=== PATIENT | male | born 1965 | race Caucasian/White ===

== ENCOUNTER → 2019-12-02 | Outpatient (CLI) | payer MEDICARE, MEDICAID ==
--- NOTE | 2019-12-02 16:02 | Diagnostic Imaging Report ---
INDICATION: Constipation, abdominal pain. Supine and upright abdominal images 3:35 PM There are bilateral pleural effusions. The gallbladder appears to be surgically absent. Bowel gas pattern is normal. There are no pathologic masses or calcifications. There does not appear to be excessive fecal retention. IMPRESSION: No acute abnormalities in the abdomen. There are bilateral pleural effusions present. Dictated by: Dictated on workstation # [id number]
== END ==
LOC: RAD FS 15:10
PROVIDERS: ATTEND Nurse Practitioner Family
DX: J90 Pleural effusion, not elsewhere classified (principal); R10.84 Generalized abdominal pain
CPT/HCPCS: 74019

== ENCOUNTER → 2019-12-03 | Outpatient (CLI) | payer MEDICARE, MEDICAID ==
--- NOTE | 2019-12-03 16:32 | Diagnostic Imaging Report ---
INDICATION: Pleural effusion. TIME OF EXAM: 3:09 PM. COMPARISON: No prior studies are available for comparison. FINDINGS: There is a small right and gjpyv-hr-sadpjtts left pleural effusion. There are congestive changes in both lungs. The central vascularity is prominent. There appears to be airspace infiltrate and consolidation in the left base obscuring the left hemidiaphragm. No pneumothorax is seen. IMPRESSION: Central congestive changes with bilateral pleural effusions, left greater, as well as left basilar airspace infiltrate, suggestive of pneumonia. Dictated by: Dictated on workstation # [id number]
== END ==
LOC: RAD FS 14:56
PROVIDERS: ATTEND Nurse Practitioner Family
DX: J90 Pleural effusion, not elsewhere classified (principal)
CPT/HCPCS: 71046

== ENCOUNTER 2019-12-09 12:19 | Emergency (ER) | payer MEDICARE, MEDICAID ==
[~2019-12-09] VITALS: Ht 175.3 cm; Wt 79.4 kg
--- NOTE | 2019-12-09 13:04 | ED Cough/URI ---
General Chief Complaint: Respiratory Problems Stated Complaint: SOB Nursing Triage Note: Pt came by private vehicle with chief complaint of SOB. Pt was seen by Kailyn Best APRN and was put on an antibiotic, because his xray looked like bilateral pneumonia. Pt was alert, oriented x 4 and ambulatory. Pt stated he hasn't had much sleep, because he can't catch his breath. Pt stated he needed to sit on side of bed to breath. Pt stated that this started about 5-6 days ago. Pt denies fever, chills, but has had a cough. Sepsis Screen: Possible Severe Sepsis Risk Source: patient Exam Limitations: no limitations History of Present Illness Date Seen by Provider: Dec 09, 2019 Time Seen by Provider: 12:20 Initial Comments The patient is a pleasant 54-year-old male presents for evaluation of shortness of breath. He states that he was seen at a walk-in clinic by Kailyn Best and had a chest x-ray which showed a questionable bilateral pneumonia as a he was placed on an antibiotic. He does not recall which antibiotic. He states that he is not noticing any improvement since starting on the antibiotics and is having difficulty catching his breath as well as a cough. He states that he was started on hemodialysis about a month ago for chronic kidney disease which have been progressing. He has no history of DVT or PE. He denies fevers or chills, loss of taste or smell, productive cough, hemoptysis, abdominal pain, chest pain, palpitations, dizziness or syncope. He is alert and oriented 4, calm, speaking in full sentences, and appears to be in no distress. Upon arrival his oxygen level was approximately 86% on room air which quickly improved to 100% on nasal cannula oxygen. Timing/Duration: other (for several days) Severity/Quality: dry cough Modifying Factors: Improves With Activity (makes it worse) Associated Symptoms: cough, dizziness, fever/chills, muscle aches, nasal congestion, nasal drainage, shortness of breath, sinus infection, sore throat, wheezing Allergies and Home Medications Allergies Coded Allergies: Penicillins (Verified Allergy, Unknown, hives, 12/09/19) Patient Home Medication List Home Medication List Reviewed: Yes Review of Systems Review of Systems Constitutional: no symptoms reported EENTM: no symptoms reported Respiratory: cough, short of breath Cardiovascular: no symptoms reported Gastrointestinal: no symptoms reported Genitourinary: no symptoms reported Musculoskeletal: no symptoms reported Skin: no symptoms reported Psychiatric/Neurological: No Symptoms Reported Hematologic/Lymphatic: No Symptoms Reported Immunological/Allergic: no symptoms reported All Other Systems Reviewed Negative Unless Noted: Yes Past Gimjqbb-Uotmyf-Ppomib Hx Past Med/Social Hx: Reviewed Nursing Past Med/Soc Hx Patient Social History Recent Foreign Travel: No Contact w/Someone Who Travel: No Recent Infectious Disease Expo: No Physical Exam Vital Signs - First Documented 12/09/19 12/09/19 12:35 12:54 Temp 36.5 Pulse 112 Resp 22 B/P (MAP) 165/96 (119) Pulse Ox 100 O2 Delivery Nasal Cannula O2 Flow Rate 3.00 Capillary Refill : Less Than 3 Seconds Height: '" Weight: lbs. oz. 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 tested, no motor/sensory deficits, alert, normal mood/affect, oriented x 3 Skin: normal color, warm/dry Progress/Results/Core Measures Suspected Sepsis Recent Fever Within 48 Hours: No Infection Criteria Present: Suspected New Infection New/Unexplained Altered Menta: No Sepsis Screen: Possible Severe Sepsis Risk SIRS Temperature: Pulse: 112 Respiratory Rate: 22 Laboratory Tests 12/09/19 12:45: White Blood Count 6.8 Blood Pressure 165 /96 Mean: 119 Laboratory Tests 12/09/19 12:45: Creatinine 7.35H, Platelet Count 150, Total Bilirubin 0.5 Results/Orders Lab Results Laboratory Tests Test 12/09/19 12:45 12/09/19 12:50 Range/Units White Blood Count 6.8 4.3-11.0 10^3/uL Red Blood Count 3.18 L 4.35-5.85 10^6/uL Hemoglobin 8.9 L 13.3-17.7 G/DL Hematocrit 27 L 40-54 % Mean Corpuscular Volume 85 80-99 FL Mean Corpuscular Hemoglobin 28 25-34 PG Mean Corpuscular Hemoglobin Concent 33 32-36 G/DL Red Cell Distribution Width 15.1 H 10.0-14.5 % Platelet Count 150 130-400 10^3/uL Mean Platelet Volume 11.6 H 7.4-10.4 FL Neutrophils (%) (Auto) 85 H 42-75 % Lymphocytes (%) (Auto) 7 L 12-44 % Monocytes (%) (Auto) 6 0-12 % Eosinophils (%) (Auto) 2 0-10 % Basophils (%) (Auto) 0 0-10 % Neutrophils # (Auto) 5.7 1.8-7.8 X 10^3 Lymphocytes # (Auto) 0.5 L 1.0-4.0 X 10^3 Monocytes # (Auto) 0.4 0.0-1.0 X 10^3 Eosinophils # (Auto) 0.1 0.0-0.3 10^3/uL Basophils # (Auto) 0.0 0.0-0.1 10^3/uL Neutrophils % (Manual) 84 % Lymphocytes % (Manual) 6 % Monocytes % (Manual) 7 % Eosinophils % (Manual) 3 % Basophils % (Manual) 0 % Band Neutrophils 0 % Sodium Level 135 135-145 MMOL/L Potassium Level 4.1 3.6-5.0 MMOL/L Chloride Level 100 98-107 MMOL/L Carbon Dioxide Level 22 21-32 MMOL/L Anion Gap 13 5-14 MMOL/L Blood Urea Nitrogen 49 H 7-18 MG/DL Creatinine 7.35 H 0.60-1.30 MG/DL Estimat Glomerular Filtration Rate 8 BUN/Creatinine Ratio 7 Glucose Level 222 H 70-105 MG/DL Calcium Level 8.5 8.5-10.1 MG/DL Corrected Calcium 9.1 8.5-10.1 MG/DL Magnesium Level 2.1 1.6-2.4 MG/DL Total Bilirubin 0.5 0.1-1.0 MG/DL Aspartate Amino Transf (AST/SGOT) 40 H 5-34 U/L Alanine Aminotransferase (ALT/SGPT) 21 0-55 U/L Alkaline Phosphatase 180 H 40-136 U/L Total Protein 6.4 6.4-8.2 GM/DL Albumin 3.2 3.2-4.5 GM/DL My Orders Orders - SINGH SWANSON DO Cbc With Automated Diff (12/09/19 12:56) Comprehensive Metabolic Panel (12/09/19 12:56) Blood Culture (12/09/19 12:56) Chest 1 View Ap/Pa Only (12/09/19 12:56) Magnesium (12/09/19 12:56) Ekg Tracing (12/09/19 12:56) O2 (12/09/19 12:56) Ed Iv/Invasive Line Start (12/09/19 12:56) Monitor-Rhythm Ecg Trace Only (12/09/19 12:56) Lactic Acid Analyzer (12/09/19 12:56) Coronavirus Sars-Cov-2 So 2018 (12/09/19 12:56) Student Life Dean (12/09/19 12:56) Continuous Pulse Ox (12/09/19 12:56) Manual Differential (12/09/19 12:45) Vital Signs/I&O 12/09/19 12/09/19 12:35 12:54 Temp 36.5 Pulse 112 Resp 22 B/P (MAP) 165/96 (119) Pulse Ox 100 100 O2 Delivery Nasal Cannula Room Air O2 Flow Rate 3.00 Capillary Refill : Less Than 3 Seconds Blood Pressure Mean: 119 Progress Note : Progress Note @1540 - Case d/w the transfer center at [facility] who states that both [facility] and [facility] are at capacity. @1603 - Dr. Gomes at [facility] states that because the pt was swabbed for COVID he would have to go to their COVID unit which is currently full so they cannot accept the transfer. @1610 - case discussed with Dr. Bansal at [facility] who is unable to accept transfer because of the patient's requirement for hemodialysis. Splinted the patient and I explained to him that I would be happy to call any other hospital for transfer including many hospitals in the [place] area. The patient is unwilling to be transferred anywhere else and wants to leave against district medical examiner at this time. The patient understands that he is hypoxic and that leaving is dangerous and that this could result in permanent disability or . He is willing to sign out against district medical examiner. Advised patient that he can return at any time if he changes his mind. ECG EKG : Comment EKG@9021 - Unaqk cardiac, rate 110, normal axis, no acute ischemic findings noted, no STEMI, reviewed and interpreted by myself Diagnostic Imaging Diagonstic Imaging: Xray Comments [facility]. [place], [place] NAME: SINGH MILLER MED REC#: [id number] PT STATUS: REG ER : 1965 PHYSICIAN: SINGH SWANSON DO ADMIT DATE: 12/09/19/ER FS Draft Date of Exam:12/09/19 CHEST 1 VIEW AP/PA ONLY INDICATION: Shortness of breath. TIME OF EXAM: 01:05 p.m. COMPARISON: Correlation is made with prior chest from 12/03/2019. FINDINGS: Heart size is normal. Left basilar consolidation and pleural fluid is unchanged. Patient has developed some airspace infiltrate in the right upper lobe. There are prominent interstitial markings throughout both lungs as well. No pneumothorax is seen. IMPRESSION: No significant change in left basilar consolidation and pleural fluid since exam from 12/03/2019. There is worsening airspace infiltrate in the right upper lobe since prior exam. Dictated on workstation # [id number] Dict: 12/09/19 1313 Trans: 12/09/19 1319 [id number] Interpreted by: MARILY BULLARD MD Electronically signed by: Departure Impression Primary Impression: Hypoxia Additional Impressions: Right upper lobe pulmonary infiltrate Pleural effusion Disposition: AGAINST MEDICAL ADVICE Condition: Stable Departure-Patient Inst. Decision time for Depature: 16:27 Referrals: [facility]/ (PCP) Primary Care Physician BELEN CHESTER APRN (Family) Primary Care Physician Patient Instructions: Community-Acquired Pneumonia, Adult (DC), Cough, Adult (DC) Add. Discharge Instructions: You chose to leave AGAINST MEDICAL ADVICE today. You can change her mind to return at any time and we would be happy to see you. Take the prescribed medicine as directed. Follow-up with your doctor in the next 24 hours. Return to the emergency Department immediately for difficulty breathing, new or worsening symptoms. Scripts Albuterol Sulfate (PROAIR HFA) 1 Puff Puff 2 PUFF IH Q4H for 10 Days, #1 INHALER 1 PUFF = 90 MCG Prov: SINGH SWANSON DO 12/09/19 Levofloxacin (Levaquin) 750 Mg Tablet 750 MG PO DAILY for 5 Days, #5 TAB Prov: SINGH SWANSON DO 12/09/19 SINGH SWANSON DO Dec 09, 2019 13:04
--- OUTSIDE RECORDS SUMMARY | 2019-12-09 13:10 | XMS REPORT ---
Author Author Lenny Cornelius Doctor Organization [facility] Address Unknown Phone Unavailable Care Team Providers Care Keel Press Operator Name Role Phone Migration, Doctor Unavailable Unavailable PROBLEMS Type Condition ICD9-CM Code [id number] Code Onset Dates Condition S tatus SNOMED Code Problem Diabetic polyneuropathy associated with type 2 d iabetes mellitus E11.42 Active 41250210 Problem Essential hypertension I10 Active 93445767 Problem Acute upper respiratory infections of unspecified site 465.9 Active 09795958 Problem Polyneuropathy in diabetes 357.2 Act gurmeet 88050396 Problem Type 2 diabetes mellitus wit hout complication, without long-term current use of insulin E11.9 Active 841572519 ALLERGIES No Information ENCOUNTERS Encounter Location Date Diagnosis [address] [address] Dec, [address] [address] October, [address] [address] Sep, Elevated serum creatinine R79.[address] [address] Sep, [address] [address] Sep, Type 2 diabetes mellitus without complic ation, without long-term current use of insulin E11.9 ; Disorder of skin and subcutaneous tissue L98.9 ; Diabetic polyneuropathy associated with type 2 diabetes mellitus E11.42 and Essential hypertension I10 [address] [address] Aug, [facility] [address] [facility] [id number] [address] [place] [address] Sep, [facility] [address] [facility] [id number] [address] [place] [address] Sep, [facility] [address] [id number] [address] [place] [address], [place] [address] Dec, [facility] [address] [id number] [address] [place] [address], [place] [address] Dec, [facility] [address] [id number] [address] [place] [address], [place] [address] Jul, [facility] [address] [id number] [address] [place] [address], [place] [address] Jan, [facility] [address] [id number] [address] [place] [address], [place] [address] Dec, [facility] [address] [id number] [address] [place] [address], [place] [address] Dec, [facility] [address] [id number] [address] [place] [address], [place] [address] Nov, [facility] [address] [id number] [address] [place] [address], [place] [address] Sep, [facility] [address] [id number] [address] [place] [address], [place] [address] Jul, [facility] [address] [id number] [address] [place] [address], [place] [address] Jul, [facility] [address] [id number] [address] [place] [address], [place] [address] Jul, [facility] [address] [id number] [address] [place] [address], [place] [address] Jul, [facility] [address] [id number] [address] [place] [address], [place] [address] Jul, [facility] [address] [id number] [address] [place] [address], [place] [address] Jul, [facility] [address] [id number] [address] [place] [address], [place] [address] Jun, [facility] [address] [id number] [address] [place] [address], [place] [address] Jun, [facility] [address] [id number] [address] [place] [address] Jun, [facility] [address] [id number] [address] [place] [address] May, [facility] [address] [facility] [id number] [address] [place] [address] May, [facility] [address] [facility] [id number] [address] [place] [address] May, [facility] [address] [facility] [id number] [address] [place] [address] May, [facility] [address] [facility] [id number] [address] [place] [address] Jan, [facility] [address] [facility] [id number] [address] [place] [address] Dec, IMMUNIZATIONS No Known Immunizations SOCIAL HISTORY Never Assessed REASON FOR VISIT [facility] [place] CARE VITAL SIGNS MEDICATIONS Unknown Medications RESULTS No Results PROCEDURES No Known procedures INSTRUCTIONS MEDICATIONS ADMINISTERED No Known Medications MEDICAL (GENERAL) HISTORY Type Description Date Medical History type II diabetes Medical History neuropathy Medical History hepatitis C Medical History hypertension Surgical History amputation, toe Surgical History stomach Hospitalization History Surgery(s) only
--- OUTSIDE RECORDS SUMMARY | 2019-12-09 13:10 | XMS REPORT ---
Author Author Lenny NIETO Organization [facility] Address [address] [place] [address] Care Team Providers Care Information Technology Coordinator Name Role Phone NIETOLATOYA CaseyEDGARD Unavailable PROBLEMS Type Condition ICD9-CM Code YYN78-GI Code Onset Dates Condition S tatus SNOMED Code Problem Acute upper respiratory infections of unspecified site 465.9 Active 65338140 Problem Polyneuropathy in diabetes 357.2 Act gurmeet 08936793 ALLERGIES No Information ENCOUNTERS Encounter Location Date Diagnosis [address] [address] Sep, [address] [address] Aug, [facility] [address] [id number] [address] [place] [address] Sep, [facility] [address] [id number] [address] [place] [address] Sep, [facility] [address] [id number] [address] [place] [address] Dec, [facility] [address] [id number] [address] [place] [address] Dec, [facility] [address] [id number] [address] [place] [address] Jul, [facility] [address] [id number] [address] [place] [address] Jan, [facility] [address] [id number] [address] [place] [address] Dec, [facility] [address] [id number] [address] [place] [address] Dec, [facility] [address] [id number] [address] [place] [address], [place] [address] Nov, [facility] [address] [id number] [address] [place] [address], [place] [address] Sep, [facility] [address] [id number] [address] [place] [address], [place] [address] Jul, [facility] [address] [id number] [address] [place] [address], [place] [address] Jul, [facility] [address] [id number] [address] [place] [address], [place] [address] Jul, [facility] [address] [id number] [address] [place] [address], [place] [address] Jul, [facility] [address] [id number] [address] [place] [address], [place] [address] Jul, [facility] [address] [id number] [address] [place] [address], [place] [address] Jul, [facility] [address] [id number] [address] [place] [address], [place] [address] Jun, [facility] [address] [id number] [address] [place] [address], [place] [address] Jun, [facility] [address] [id number] [address] [place] [address], [place] [address] Jun, [facility] [address] [id number] [address] [place] [address], [place] [address] May, [facility] [address] [id number] [address] [place] [address], [place] [address] May, [facility] [address] [id number] [address] [place] [address], [place] [address] May, [facility] [address] [id number] [address] [place] [address], [place] [address] May, [facility] [address] [id number] [address] [place] [address], [place] [address] Jan, [facility] [address] [facility] [id number] [address] [place] [address] Dec, IMMUNIZATIONS No Known Immunizations SOCIAL HISTORY Never Assessed REASON FOR VISIT PLAN OF CARE VITAL SIGNS MEDICATIONS Medication Instructions Dosage Frequency Start Date End Date Duration S tatus Xanax 0.5 MG Orally Twice a day 1 tablet 12h Aug, 28 days Active Tramadol HCl 50 MG Orally 2 times a day 2 tablets 12h Aug, 28 days Active RESULTS No Results PROCEDURES No Known procedures INSTRUCTIONS MEDICATIONS ADMINISTERED No Known Medications
--- OUTSIDE RECORDS SUMMARY | 2019-12-09 13:10 | XMS REPORT ---
Author Author Lenny Cornelius Doctor Organization [facility] Address Unknown Phone Unavailable Care Team Providers Care Furnace Hand Name Role Phone Migration, Doctor Unavailable Unavailable PROBLEMS Type Condition ICD9-CM Code UVH30-CM Code Onset Dates Condition S tatus SNOMED Code Problem Diabetic polyneuropathy associated with type 2 d iabetes mellitus E11.42 Active 23846492 Problem Essential hypertension I10 Active 37077516 Problem Acute upper respiratory infections of unspecified site 465.9 Active 23586020 Problem Polyneuropathy in diabetes 357.2 Act gurmeet 26329787 Problem Type 2 diabetes mellitus wit hout complication, without long-term current use of insulin E11.9 Active 689140911 ALLERGIES No Information ENCOUNTERS Encounter Location Date Diagnosis [address] [address] Dec, [address] [address] Sep, Elevated serum creatinine R79.[address] [address] Sep, [address] [address] Sep, Type 2 diabetes mellitus without complic ation, without long-term current use of insulin E11.9 ; Disorder of skin and subcutaneous tissue L98.9 ; Diabetic polyneuropathy associated with type 2 diabetes mellitus E11.42 and Essential hypertension I10 [address] [address] Aug, [facility] [address] [facility] [id number] [address] [place] [address] Sep, [facility] [address] [facility] [id number] [address] [place] [address] Sep, [facility] [address] [facility] [id number] [address] [place] [address] Dec, [facility] [address] [id number] [address] [place] [address], [place] [address] Dec, [facility] [address] [id number] [address] [place] [address], [place] [address] Jul, [facility] [address] [id number] [address] [place] [address], [place] [address] Jan, [facility] [address] [id number] [address] [place] [address], [place] [address] Dec, [facility] [address] [id number] [address] [place] [address], [place] [address] Dec, [facility] [address] [id number] [address] [place] [address], [place] [address] Nov, [facility] [address] [id number] [address] [place] [address], [place] [address] Sep, [facility] [address] [id number] [address] [place] [address], [place] [address] Jul, [facility] [address] [id number] [address] [place] [address], [place] [address] Jul, [facility] [address] [id number] [address] [place] [address], [place] [address] Jul, [facility] [address] [id number] [address] [place] [address], [place] [address] Jul, [facility] [address] [id number] [address] [place] [address], [place] [address] Jul, [facility] [address] [id number] [address] [place] [address], [place] [address] Jul, [facility] [address] [id number] [address] [place] [address], [place] [address] Jun, [facility] [address] [id number] [address] [place] [address], [place] [address] Jun, [facility] [address] [id number] [address] [place] [address] Jun, [facility] [address] [facility] [id number] [address] [place] [address] May, [facility] [address] [facility] [id number] [address] [place] [address] May, [facility] [address] [facility] [id number] [address] [place] [address] May, [facility] [address] [facility] [id number] [address] [place] [address] May, [facility] [address] [facility] [id number] [address] [place] [address] Jan, [facility] [address] [facility] [id number] [address] [place] [address] Dec, IMMUNIZATIONS No Known Immunizations SOCIAL HISTORY Never Assessed REASON FOR VISIT [facility] PLAN OF CARE VITAL SIGNS MEDICATIONS Unknown Medications RESULTS No Results PROCEDURES No Known procedures INSTRUCTIONS MEDICATIONS ADMINISTERED No Known Medications MEDICAL (GENERAL) HISTORY Type Description Date Medical History type II diabetes Medical History neuropathy Medical History hepatitis C Medical History hypertension Surgical History amputation, toe Surgical History stomach Hospitalization History Surgery(s) only
--- OUTSIDE RECORDS SUMMARY | 2019-12-09 13:10 | XMS REPORT ---
Author Author Lenny Cornelius Doctor Organization [facility] Address Unknown Phone Unavailable Care Team Providers Care Ekg Monitor Tech Name Role Phone Migration, Doctor Unavailable Unavailable PROBLEMS Type Condition ICD9-CM Code TEN84-AR Code Onset Dates Condition S tatus SNOMED Code Problem Polyneuropathy in diabetes 357.2 Act gurmeet 16979470 Problem Type 2 diabetes mellitus wit hout complication, without long-term current use of insulin E11.9 Active 696608494 Problem Acute upper respiratory infections of unspecified site 465.9 Active 53539053 ALLERGIES No Information ENCOUNTERS Encounter Location Date Diagnosis [address] [address] Dec, [address] [address] Sep, [address] [address] Sep, Type 2 diabetes mellitus without complic ation, without long-term current use of insulin E11.9 and Disorder of skin and subcutaneous tissue L98.[address] [address] Aug, [facility] [address] [facility] [id number] [address] [place] [address] Sep, [facility] [address] [id number] [address] [place] [address] Sep, [facility] [address] [id number] [address] [place] [address] Dec, [facility] [address] [id number] [address] [place] [address] Dec, [facility] [address] [facility] [id number] [address] [place] [address] Jul, [facility] [address] [id number] [address] [place] [phone] Jan, [facility] [address] [id number] [address] [place] [address], [place] [address] Dec, [facility] [address] [id number] [address] [place] [address], [place] [address] Dec, [facility] [address] [id number] [address] [place] [address], [place] [address] Nov, [facility] [address] [id number] [address] [place] [address], [place] [address] Sep, [facility] [address] [id number] [address] [place] [address], [place] [address] Jul, [facility] [address] [id number] [address] [place] [address], [place] [address] Jul, [facility] [address] [id number] [address] [place] [address], [place] [address] Jul, [facility] [address] [id number] [address] [place] [address], [place] [address] Jul, [facility] [address] [id number] [address] [place] [address], [place] [address] Jul, [facility] [address] [id number] [address] [place] [address], [place] [address] Jul, [facility] [address] [id number] [address] [place] [address], [place] [address] Jun, [facility] [address] [id number] [address] [place] [address], [place] [address] Jun, [facility] [address] [id number] [address] [place] [address], [place] [address] Jun, [facility] [address] [id number] [address] [place] [address], [place] [address] May, [facility] [address] [id number] [address] [place] [address], [place] [address] May, [facility] [address] [id number] [address] [address] May, [facility] [address] [facility] [id number] [address] [place] [address] May, [facility] [address] [facility] [id number] [address] [place] [address] Jan, [facility] [address] [facility] [id number] [address] [place] [address] Dec, IMMUNIZATIONS No Known Immunizations SOCIAL HISTORY Never Assessed REASON FOR VISIT [facility] PLAN OF CARE VITAL SIGNS MEDICATIONS Medication Instructions Dosage Frequency Start Date End Date Duration S tatus Levemir Flexpen 100 unit/mL by Subcutane ous route 1 time per day53 units @ hs, titrate up 3 u q 3 d til FBS < 110 Jul, Active metformin 1,000 mg take 1 tablet by Oral route 2 times per day Jun, Active Bactrim DS 800-160 mg take 1 tablet by O ral route 2 times per day for 10 day(s) Jun, Active NovoLog Flexpen 100 unit/mL by Subcutane ous route 3 times per day20 units tid with meals Jul, Active Neurontin 300 mg 1 capsule by Oral ro claribel 3 times per day PT MUST BE SEEN FOR FURTHER REFILLS Dec, Active RESULTS No Results PROCEDURES No Known procedures INSTRUCTIONS MEDICATIONS ADMINISTERED No Known Medications MEDICAL (GENERAL) HISTORY Type Description Date Medical History type II diabetes Medical History neuropathy Medical History hepatitis C Medical History hypertension Surgical History amputation, toe Surgical History stomach Hospitalization History Surgery(s) only
--- OUTSIDE RECORDS SUMMARY | 2019-12-09 13:10 | XMS REPORT ---
Author Author Lenny Cornelius Doctor Organization [facility] Address Unknown Phone Unavailable Care Team Providers Care Felt Pad Cutter Name Role Phone Migration, Doctor Unavailable Unavailable PROBLEMS Type Condition ICD9-CM Code ULO08-GX Code Onset Dates Condition S tatus SNOMED Code Problem Diabetic polyneuropathy associated with type 2 d iabetes mellitus E11.42 Active 05994251 Problem Essential hypertension I10 Active 07262164 Problem Neuropathy G62.9 Active 306421731 Problem Tobacco abuse Z72.0 Active 230890 05 Problem Type 2 diabetes mellitus wit hout complication, without long-term current use of insulin E11.9 Active 285960146 Problem Controlled type 2 diabetes m ellitus without complication, without long- term current use of insulin E11.9 Active 263838213 Problem Cigarette nicotine dependence F17.200 Active 404567326 Problem Hepatitis C B19.20 Active 49264837 ALLERGIES No Information ENCOUNTERS Encounter Location Date Diagnosis [address] [address] Dec, [address] [address] October, Local infection of the skin and subcutan eous tissue, unspecified L08.9 and Unspecified staphylococcus as the cause of diseases classified elsewhere B95.[address] [address] October, [address] [address] Sep, Elevated serum creatinine R79.[address] [address] Sep, [address] [address] Sep, Type 2 diabetes mellitus without complic ation, without long-term current use of insulin E11.9 ; Disorder of skin and subcutaneous tissue L98.9 ; Diabetic polyneuropathy associated with type 2 diabetes mellitus E11.42 and Essential hypertension I10 [facility] [address] [place] [address] Aug, [facility] [address] [id number] [facility] [place] [address] 14 Sep, 2014 [facility] [address] [id number] [address] [place] [address], [place] [address] Sep, [facility] [address] [id number] [address] [place] [address], [place] [address] Dec, [facility] [address] [id number] [address] [place] [address], [place] [address] Dec, [facility] [address] [id number] [address] [place] [address], [place] [address] Jul, [facility] [address] [id number] [address] [place] [address], [place] [address] Jan, [facility] [address] [id number] [address] [place] [address], [place] [address] Dec, [facility] [address] [id number] [address] [place] [address], [place] [address] Dec, [facility] [address] [id number] [address] [place] [address], [place] [address] Nov, [facility] [address] [id number] [address] [place] [address], [place] [address] Sep, [facility] [address] [id number] [address] [place] [address], [place] [address] Jul, [facility] [address] [id number] [address] [place] [address], [place] [address] Jul, [facility] [address] [id number] [address] [place] [address], [place] [address] Jul, [facility] [address] [id number] [address] [place] [address], [place] [address] Jul, [facility] [address] [id number] [address] [place] [address] Jul, [facility] [address] [id number] [address] [place] [address] Jul, [facility] [address] [id number] [address] [place] [address] Jun, [facility] [address] [id number] [address] [place] [address] Jun, [facility] [address] [id number] [address] [place] [address] Jun, [facility] [address] [id number] [address] [place] [address] May, [facility] [address] [id number] [address] [place] [address] May, [facility] [address] [id number] [address] [place] [address] May, [facility] [address] [id number] [address] [place] [address] May, [facility] [address] [id number] [address] [place] [address] Jan, [facility] [address] [id number] [address] [place] [address] Dec, IMMUNIZATIONS No Known Immunizations SOCIAL HISTORY Never Assessed REASON FOR VISIT [facility] [place] OF CARE VITAL SIGNS MEDICATIONS Unknown Medications RESULTS No Results PROCEDURES No Known procedures INSTRUCTIONS MEDICATIONS ADMINISTERED No Known Medications MEDICAL (GENERAL) HISTORY Type Description Date Medical History Controlled type 2 diabetes m ellitus without complication, without long-term current use of insulin Medical History Diabetic polyneuropathy asso ciated with type 2 diabetes mellitus Medical History Essential hypertension Medical History Neuropathy Medical History Hepatitis C Medical History Tobacco abuse Medical History Cigarette nicotine dependence Surgical History amputation, toe Surgical History stomach Hospitalization History Surgery(s) only
--- OUTSIDE RECORDS SUMMARY | 2019-12-09 13:10 | XMS REPORT ---
Author Author Lenny DINH Organization [facility] Address [address] [place] [address] Care Team Providers Care Business Center Attendant Name Role Phone ALY DINH Unavailable PROBLEMS Type Condition ICD9-CM Code IRH46-MI Code Onset Dates Condition S tatus SNOMED Code Problem Essential hypertension I10 Active 00148046 Problem Hepatitis C B19.20 Active 75599351 Problem Tobacco abuse Z72.0 Active 428946 05 Problem CKD (chronic kidney disease) stage 4, GFR 15-29 ml/min N18.4 Active 203583338 Problem Diabetic polyneuropathy associated with type 2 d iabetes mellitus E11.42 Active 05248943 Problem Constipation, unspecified constipation type K59.00 Active 71715177 Problem Controlled type 2 diabetes m ellitus without complication, without long- term current use of insulin E11.9 Active 754644426 Problem Chronic kidney disease, unspecified CKD stage N18. 9 Active 934997953 Problem Other iron deficiency anemia D50.8 A ctive 02431431 Problem Stage 4 chronic kidney disease N18.4 Active 493273351 ALLERGIES No Information ENCOUNTERS Encounter Location Date Diagnosis [address] 340 [id number] [place] [address] 28 Sep, [address] 340B [id number] [address] 28 Sep, 2019 Diabetic polyneuropathy asso ciated with type 2 diabetes mellitus E11.[address] 340B [id number], [place] [address] 27 Sep, 2019 Encounter for immunization Z [address] 340[address] [id number], [place] [address] 17 Sep, [address] 340B [id number], [place] [address] Sep, CKD (chronic kidney disease) stage 4, GFR 15-29 ml/min N18.4 ; Orthopnea R06.01 ; Controlled type 2 diabetes mellitus without complication, without long-term current use of insulin E11.9 ; Essential hyp ertension I10 ; Encounter for immunization Z23 ; Other iron deficiency anemia D50.8 and Constipation, unspecified constipation type K59.00 [facility] [place] [facility] W[facility] IN [facility] [address] [id number] [place] [address] Sep, [address] 340[address] [id number] [address] Aug, Diabetic polyneuropathy asso ciated with type 2 diabetes mellitus E11.42 [facility] WALK IN [facility] [address] [id number] [place] [address] Aug, [address] 340[address] [id number], [place] [address] Aug, [address] 340[address] [id number], [place] [address] Aug, Diabetic polyneuropathy asso ciated with type 2 diabetes mellitus E11.[address] 340[address] [id number], [place] [address] Jul, [address] 340[address] [id number], [place] [address] Jul, [address] 340[address] [id number], [place] [address] Jul, [address] 340B [id number], [place] [address] Jul, Leg cramps R25.2 ; Chronic k idney disease, unspecified CKD stage N18.9 and Other iron deficiency anemia D50.[address] 340B [id number], [place] [address] Jul, Leg cramps R25.2 ; Other iro n deficiency anemia D50.8 and Chronic kidney disease, unspecified CKD stage N18.9 [facility] [place] [address] 340B [id number] [place] [address] 10 Jul, 2019 [facility] [place] [address] 340B [id number] [place] [address] Jul, Diabetic polyneuropathy asso ciated with type 2 diabetes mellitus E11.42 [facility] [place] [address] 340B [id number] [place] [address] Jul, [facility] [place] [address] 340B [id number] [place] [address] Jul, Encounter for diabetic foot exam E11.9 and Acute renal failure, unspecified acute renal failure type N17.9 [facility] [place] [address] 340B [id number] [place] [address] Jul, [facility] [address] [facility] [id number] [address] [place] [address] Jul, [facility] [place] [address] 340B [id number] [place] [address] Jun, [facility] [place] [address] 340B [id number], [place] [address] Jun, [facility] [place] [address] 340B [id number] [place] [address] Jun, Encounter for Department of Transportation (DOT) examination for [place]od[place] license Z02.4 [facility] [address] [facility] [id number] [address] [place] [address] Jun, [facility] [place] [address] 340B [id number] [place] [address] Jun, [facility] [place] [address] 340B [id number] [place] [address] Jun, Essential hypertension I10 [facility] [place] [address] 340B [id number] [place] [address] 07 Jun, 2019 Essential hypertension I10 ; Chronic kidney disease, unspecified CKD stage N18.9 ; Elevated serum creatinine R79.89 and Controlled type 2 diabetes mellitus without complication, without long-term current use of insulin E11.9 [facility] [place] [address] 340B [id number] [place] [address] Jun, Chronic kidney disease, unsp ecified CKD stage N18.9 ; Essential hypertension I10 ; Controlled type 2 diabetes mellitus without complication, without long-term current use of insulin E11.9 and Elevated serum creatinine R79.89 [facility] [place] [address] 340B [id number] [place] [address] Jun, Essential hypertension I10 ; Diabetic polyneuropathy associated with type 2 diabetes mellitus E11.42 ; Chronic kidney disease, unspecified CKD stage N18.9 ; Swelling of left lower extremity M79.89 ; Loc alized swelling of both lower legs R22.43 and Swelling of both hands M79.89 [facility] [place] [address] 340B [id number] [place] [address] May, [facility] [place] [address] 340B [id number] [place] [address] May, [facility] [place] [address] 340B [id number] [place] [address] Apr, [facility] [place] [address] 340B [id number] [place] [address] Apr, [facility] [place] [address] 340B [id number] [place] [address] Apr, [facility] [address] 340B [id number] [place] [address] Mar, [facility] [address] 340B [id number] [place] [address] Mar, [facility] [address] 340B [id number] [place] [address] Mar, Rash R21 ; Chronic renal imp airment, unspecified CKD stage N18.9 ; Chronic kidney disease, unspecified CKD stage N18.9 and Essential hypertension I10 [facility] [address] [id number] [place] [address] Feb, [facility] [address] [id number] [place] [address] Jan, [facility] [address] [id number] [place] [address] Jan, Chronic kidney disease, unsp ecified CKD stage N18.9 [facility] [address] [id number] [place] [address] Jan, [facility] [address] [id number] [place] [address] Dec, Chronic kidney disease, unsp ecified CKD stage N18.9 [facility] [address] [id number] [place] [address] Dec, [facility] [address] [id number] [place] [address] Dec, Elevated serum creatinine R7 9.89 [facility] [address] [id number] [place] [address] Dec, [facility] [address] [id number] [place] [address] Dec, Elevated serum creatinine R7 9.89 [facility] [address] 340B [id number] [place] [address] Dec, Controlled type 2 diabetes m ellitus without complication, without long-term current use of insulin E11.9 ; Diabetic polyneuropathy associated with type 2 diabetes mellitus E11.42 ; Essential hypertension I10 and Elevated serum creatinine R79.89 [facility] [address] [id number] [place] [address] Nov, [facility] [address] [id number] [place] [address] October, Local infection of the skin and subcutaneous tissue, unspecified L08.9 and Unspecified staphylococcus as the cause of diseases classified elsewhere B95.8 [facility] [address] 340B [id number] [place] [address] October, [facility] [address] 340B [id number] [place] [address] Sep, Elevated serum creatinine R7 9.89 [facility] [address] 340B [id number] [place] [address] Sep, [facility] [address] 340B [id number] [place] [address] Sep, Type 2 diabetes mellitus wit hout complication, without long-term current use of insulin E11.9 ; Disorder of skin and subcutaneous tissue L98.9 ; Diabetic polyneuropathy associated with type 2 diabetes mellitus E11.42 and Essential hypertension I10 [facility] [address] 340B [id number] [place] [address] Aug, [facility] [address] [id number] [address] [place] [address] Sep, [facility] [address] [facility] [id number] [address] [place] [address] Sep, [facility] [address] [id number] [address] [place] [address] Dec, [facility] [address] [facility] [id number] [address] [place] [address] Dec, [facility] [address] [id number] [address] [place] [address] Jul, [facility] [address] [id number] [address] [place] [address] Jan, [facility] [address] [id number] [address] [place] [address] Dec, [facility] [address] [id number] [address] [place] [address] Dec, [facility] [address] [id number] [address] [place] [address] Nov, [facility] [address] [id number] [address] [place] [address], [place] [address] Sep, [facility] [address] [id number] [address] [place] [address], [place] [address] Jul, [facility] [address] [id number] [address] [place] [address], [place] [address] Jul, [facility] [address] [id number] [address] [place] [address], [place] [address] Jul, [facility] [address] [id number] [address] [place] [address], [place] [address] Jul, [facility] [address] [id number] [address] [place] [address], [place] [address] Jul, [facility] [address] [id number] [address] [place] [address], [place] [address] Jul, [facility] [address] [id number] [address] [place] [address], [place] [address] Jun, [facility] [address] [id number] [address] [place] [address], [place] [address] Jun, [facility] [address] [id number] [address] [place] [address], [place] [address] Jun, [facility] [address] [id number] [address] [place] [address], [place] [address] May, [facility] [address] [id number] [address] [place] [address] May, [facility] [address] [id number] [address] [place] [address], [place] [address] May, [facility] [address] [id number] [address] [place] [address], [place] [address] May, [facility] [address] [id number] [address] [place] [address] Jan, [facility] [address] [facility] [id number] [address] [place] [address] 15 Dec, 2009 IMMUNIZATIONS No Known Immunizations SOCIAL HISTORY Never Assessed REASON FOR VISIT PLAN OF CARE VITAL SIGNS MEDICATIONS Unknown [...] Tobacco abuse Medical History Cigarette nicotine dependence Medical History Type 2 diabetes mellitus wit hout complication, without long-term current use of insulin Medical History Neuropathy Medical History Cigarette nicotine dependence Medical History Chronic kidney disease, unspecified CKD stage Medical History Chronic renal impairment, unspecified CK D stage Surgical History amputation, toe Surgical History stomach Hospitalization History Surgery(s) only
--- OUTSIDE RECORDS SUMMARY | 2019-12-09 13:10 | XMS REPORT ---
Author Author Lenny Cornelius Doctor Organization [facility] Address Unknown Phone Unavailable Care Team Providers Care Sound Designer Name Role Phone Migration, Doctor Unavailable Unavailable PROBLEMS Type Condition ICD9-CM Code DLY10-OB Code Onset Dates Condition S tatus SNOMED Code Problem Diabetic polyneuropathy associated with type 2 d iabetes mellitus E11.42 Active 40534812 Problem Essential hypertension I10 Active 55841438 Problem Acute upper respiratory infections of unspecified site 465.9 Active 74357796 Problem Polyneuropathy in diabetes 357.2 Act gurmeet 67471038 Problem Type 2 diabetes mellitus wit hout complication, without long-term current use of insulin E11.9 Active 744724942 ALLERGIES No Information ENCOUNTERS Encounter Location Date Diagnosis [address] [address] Dec, [address] [address] October, [address] [address] Sep, Elevated serum creatinine R79.[address] [address] Sep, [address] [address] Sep, Type 2 diabetes mellitus without complic ation, without long-term current use of insulin E11.9 ; Disorder of skin and subcutaneous tissue L98.9 ; Diabetic polyneuropathy associated with type 2 diabetes mellitus E11.42 and Essential hypertension I10 [address] [address] Aug, [facility] [address] [facility] [id number] [address] [place] [address] Sep, [facility] [address] [facility] [id number] [address] [place] [address] Sep, [facility] [address] [id number] [address] [place] [address], [place] [address] Dec, [facility] [address] [id number] [address] [place] [address], [place] [address] Dec, [facility] [address] [id number] [address] [place] [address], [place] [address] Jul, [facility] [address] [id number] [address] [place] [address], [place] [address] Jan, [facility] [address] [id number] [address] [place] [address], [place] [address] Dec, [facility] [address] [id number] [address] [place] [address], [place] [address] Dec, [facility] [address] [id number] [address] [place] [address], [place] [address] Nov, [facility] [address] [id number] [address] [place] [address], [place] [address] Sep, [facility] [address] [id number] [address] [place] [address], [place] [address] Jul, [facility] [address] [id number] [address] [place] [address], [place] [address] Jul, [facility] [address] [id number] [address] [place] [address], [place] [address] Jul, [facility] [address] [id number] [address] [place] [address], [place] [address] Jul, [facility] [address] [id number] [address] [place] [address], [place] [address] Jul, [facility] [address] [id number] [address] [place] [address], [place] [address] Jul, [facility] [address] [id number] [address] [place] [address], [place] [address] Jun, [facility] [address] [id number] [address] [place] [address], [place] [address] Jun, [facility] [address] [id number] [address] [place] [address] Jun, [facility] [address] [id number] [address] [place] [address] May, [facility] [address] [facility] [id number] [address] [place] [address] May, [facility] [address] [facility] [id number] [address] [place] [address] May, [facility] [address] [facility] [id number] [address] [place] [address] May, [facility] [address] [facility] [id number] [address] [place] [address] Jan, [facility] [address] [facility] [id number] [address] [place] [address] Dec, IMMUNIZATIONS No Known Immunizations SOCIAL HISTORY Never Assessed REASON FOR VISIT [facility] PLAN OF CARE VITAL SIGNS MEDICATIONS Unknown Medications RESULTS No Results PROCEDURES No Known procedures INSTRUCTIONS MEDICATIONS ADMINISTERED No Known Medications MEDICAL (GENERAL) HISTORY Type Description Date Medical History type II diabetes Medical History neuropathy Medical History hepatitis C Medical History hypertension Surgical History amputation, toe Surgical History stomach Hospitalization History Surgery(s) only
--- OUTSIDE RECORDS SUMMARY | 2019-12-09 13:10 | XMS REPORT ---
Author Author Lenny MINA Organization [facility] Address [address] [place] [address] Care Team Providers Care Program Associate Name Role Phone MARIA E MINA Unavailable PROBLEMS Type Condition ICD9-CM Code NIJ37-MZ Code Onset Dates Condition S tatus SNOMED Code Problem Essential hypertension I10 Active 07025734 Problem Hepatitis C B19.20 Active 95792972 Problem Tobacco abuse Z72.0 Active 201720 05 Problem CKD (chronic kidney disease) stage 4, GFR 15-29 ml/min N18.4 Active 429933231 Problem Diabetic polyneuropathy associated with type 2 d iabetes mellitus E11.42 Active 23150015 Problem Constipation, unspecified constipation type K59.00 Active 29008200 Problem Controlled type 2 diabetes m ellitus without complication, without long- term current use of insulin E11.9 Active 921230384 Problem Chronic kidney disease, unspecified CKD stage N18. 9 Active 573935842 Problem Other iron deficiency anemia D50.8 A ctive 52438212 Problem Stage 4 chronic kidney disease N18.4 Active 074206868 ALLERGIES No Information ENCOUNTERS Encounter Location Date Diagnosis [address] 340 [id number], [place] [address] Sep, [address] [id number], [place] [address] Sep, Diabetic polyneuropathy asso ciated with type 2 diabetes mellitus E11.[address] 340[address] [id number], [place] [address] 27 Sep, 2019 Encounter for immunization Z [address] [id number], [place] [address] 17 Sep, [address] 340[address] [id number], [place] [address] Sep, CKD (chronic kidney disease) stage 4, GFR 15-29 ml/min N18.4 ; Orthopnea R06.01 ; Controlled type 2 diabetes mellitus without complication, without long-term current use of insulin E11.9 ; Essential hyp ertension I10 ; Encounter for immunization Z23 ; Other iron deficiency anemia D50.8 and Constipation, unspecified constipation type K59.00 [facility] [address] [id number] [place] [address] Sep, [address] [id number] [place] [address] Aug, Diabetic polyneuropathy asso ciated with type 2 diabetes mellitus E11.42 [facility] [address] [id number] [place] [address] Aug, [address] [id number], [place] [address] Aug, [address] 340[address] [id number], [place] [address] Aug, Diabetic polyneuropathy asso ciated with type 2 diabetes mellitus E11.[address] 340[address] [id number], [place] [address] Jul, [address] 340[address] [id number], [place] [address] Jul, [address] [id number], [place] [address] Jul, [address] 340[address] [id number], [place] [address] Jul, Leg cramps R25.2 ; Chronic k idney disease, unspecified CKD stage N18.9 and Other iron deficiency anemia D50.[address] 340[address] [id number], [place] [address] Jul, Leg cramps R25.2 ; Other iro n deficiency anemia D50.8 and Chronic kidney disease, unspecified CKD stage N18.9 [facility] [place] [place] [address] [id number] [place] [address] 10 Jul, 2019 [facility] [place] [address] [id number] [place] [address] Jul, Diabetic polyneuropathy asso ciated with type 2 diabetes mellitus E11.42 [facility] [place] [address] [id number] [place] [address] Jul, [facility] [place] [address] 340[address] [id number] [place] [address] Jul, Encounter for diabetic foot exam E11.9 and Acute renal failure, unspecified acute renal failure type N17.9 [facility] [place] [address] 340[address] [id number] [place] [address] 04 Jul, 2019 [facility] [address] [facility] [id number] [address] [place] [address] Jul, [facility] [place] [address] [id number] [place] [address] Jun, [facility] [place] [address] 340[address] [id number], [place] [address] Jun, [facility] [place] [address] [id number] [place] [address] Jun, Encounter for Department of Transportation (DOT) examination for [place] license Z02.4 [facility] [address] [facility] [id number] [address] [place] [address] 13 Jun, 2019 [facility] [place] [address] [id number] [place] [address] Jun, [facility] [place] [address] 340[address] [id number] [place] [address] Jun, Essential hypertension I10 [facility] [place] [address]B [id number] [place] [address] 07 Jun, 2019 Essential hypertension I10 ; Chronic kidney disease, unspecified CKD stage N18.9 ; Elevated serum creatinine R79.89 and Controlled type 2 diabetes mellitus without complication, without long-term current use of insulin E11.9 [facility] [place] [address] 340B [id number] [place] [address] Jun, Chronic kidney disease, unsp ecified CKD stage N18.9 ; Essential hypertension I10 ; Controlled type 2 diabetes mellitus without complication, without long-term current use of insulin E11.9 and Elevated serum creatinine R79.89 [facility] [place] [address] 340B [id number] [place] [address] Jun, Essential hypertension I10 ; Diabetic polyneuropathy associated with type 2 diabetes mellitus E11.42 ; Chronic kidney disease, unspecified CKD stage N18.9 ; Swelling of left lower extremity M79.89 ; Loc alized swelling of both lower legs R22.43 and Swelling of both hands M79.89 [facility] [place] [address] [id number] [place] [address] May, [facility] [address] [id number] [place] [address] May, [facility] [address] 340[address] [id number] [place] [address] Apr, [facility] [address] 340B [id number] [place] [address] Apr, [facility] [address] 340B [id number] [place] [address] Apr, [facility] [address] [id number] [place] [address] Mar, [facility] [address] 340[address] [id number], [place] [address] Mar, [facility] [address] [id number] [place] [address] Mar, Rash R21 ; Chronic renal imp airment, unspecified CKD stage N18.9 ; Chronic kidney disease, unspecified CKD stage N18.9 and Essential hypertension I10 [facility] [address]B [id number] [place] [address] Feb, [facility] [address] [id number] [place] [address] Jan, [facility] [address] [id number] [place] [address] Jan, Chronic kidney disease, unsp ecified CKD stage N18.9 [facility] [address] [id number] [place] [address] Jan, [facility] [address] [id number] [place] [address] Dec, Chronic kidney disease, unsp ecified CKD stage N18.9 [facility] [address] [id number] [place] [address] Dec, [facility] [address] [id number] [place] [address] Dec, Elevated serum creatinine R7 9.89 [facility] [address] [id number] [place] [address] Dec, [facility] [address] [id number] [place] [address] Dec, Elevated serum creatinine R7 9.89 [facility] [address] [id number] [place] [address] Dec, Controlled type 2 diabetes m ellitus without complication, without long-term current use of insulin E11.9 ; Diabetic polyneuropathy associated with type 2 diabetes mellitus E11.42 ; Essential hypertension I10 and Elevated serum creatinine R79.89 [facility] [address] [id number] [place] [address] Nov, [facility] [address] [id number] [place] [address] October, Local infection of the skin and subcutaneous tissue, unspecified L08.9 and Unspecified staphylococcus as the cause of diseases classified elsewhere B95.8 [facility] [address] 340[address] [id number] [place] [address] October, [facility] [address] 340B [id number] [place] [address] Sep, Elevated serum creatinine R7 9.89 [facility] [address] 340[address] [id number] [place] [address] Sep, [facility] [address] 340[id number], [place] [address] Sep, Type 2 diabetes mellitus wit hout complication, without long-term current use of insulin E11.9 ; Disorder of skin and subcutaneous tissue L98.9 ; Diabetic polyneuropathy associated with type 2 diabetes mellitus E11.42 and Essential hypertension I10 [facility] [address] 340B [id number] [place] [address] Aug, [facility] [address] [id number] [address] [place] [address] Sep, [facility] [address] [id number] [address] [place] [address] Sep, [facility] [address] [id number] [address] [place] [address] Dec, [facility] [address] [id number] [address] [place] [address] Dec, [facility] [address] [id number] [address] [place] [address] Jul, [facility] [address] [id number] [address] [place] [address] Jan, [facility] [address] [id number] [address] [place] [address] Dec, [facility] [address] [facility] [id number] [address] [place] [address] Dec, [facility] [address] [id number] [address] [place] [address] [place] [address] Nov, [facility] [address] [id number] [address] [place] [address], [place] [address] Sep, [facility] [address] [id number] [address] [place] [address], [place] [address] Jul, [facility] [address] [id number] [address] [place] [address], [place] [address] Jul, [facility] [address] [id number] [address] [place] [address], [place] [address] Jul, [facility] [address] [id number] [address] [place] [address], [place] [address] Jul, [facility] [address] [id number] [address] [place] [address], [place] [address] Jul, [facility] [address] [id number] [address] [place] [address], [place] [address] Jul, [facility] [address] [id number] [address] [place] [address], [place] [address] Jun, [facility] [address] [id number] [address] [place] [address], [place] [address] Jun, [facility] [address] [id number] [address] [place] [address], [place] [address] Jun, [facility] [address] [id number] [address] [place] [address], [place] [address] May, [facility] [address] [id number] [address] [place] [address], [place] [address] May, [facility] [address] [id number] [address] [place] [address], [place] [address] May, [facility] [address] [id number] [address] [place] [address], [place] [address] May, [facility] [address] [id number] [address] [place] [address], [place] [address] Jan, [facility] [address] [facility] [id number] [address] [place] [address] Dec, IMMUNIZATIONS No Known Immunizations SOCIAL HISTORY [...]
--- OUTSIDE RECORDS SUMMARY | 2019-12-09 13:11 | XMS REPORT | Continuity of Care Document ---
Author Organization Unknown Address Unknown Phone Unavailable Allergies Active Description Code Type Severity Reaction Onset Reported/Identified Relationship to Patient Clinical Status Yes Penicillins Drug Allergy 12/04/2009 Medications There is no data. 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 Results Test Result Range LIPID PANEL - 09/07/18 11:40 CHOLESTEROL, TOTAL 110 mg/dL <200 HDL CHOLESTEROL 53 mg/dL >40 TRIGLYCERIDES 72 mg/dL <150 LDL-CHOLESTEROL 42 mg/dL (calc) NRG CHOL/HDLC RATIO 2.1 (calc) <5.0 NON HDL CHOLESTEROL 57 mg/dL (calc) <130 CMP - 09/07/18 11:40 GLUCOSE 200 mg/dL 65-99 UREA NITROGEN (BUN) 39 mg/dL 7-25 CREATININE 1.76 mg/dL 0.70-1.33 eGFR NON-AFR. PRYDEINIG 43 mL/min/1.73m2 > OR = 60 eGFR 50 mL/min/1.73m2 > OR = 60 BUN/CREATININE RATIO 22 (calc) 6-22 SODIUM 136 mmol/L 135-146 POTASSIUM 5.6 mmol/L 3.5-5.3 CHLORIDE 105 mmol/L 98-110 CARBON DIOXIDE 26 mmol/L 20-32 CALCIUM 8.7 mg/dL 8.6-10.3 PROTEIN, TOTAL 6.3 g/dL 6.1-8.1 ALBUMIN 3.6 g/dL 3.6-5.1 GLOBULIN 2.7 g/dL (calc) 1.9-3.7 ALBUMIN/GLOBULIN RATIO 1.3 (calc) 1.0-2. 5 BILIRUBIN, TOTAL 0.4 mg/dL 0.2-1.2 ALKALINE PHOSPHATASE 101 U/L 40-115 AST 30 U/L 10-35 ALT 21 U/L 9-46 A1C - 09/07/18 11:40 HEMOGLOBIN A1c 7.4 % of total Hgb <5.7 MICROALBUMIN/CREATININE RATIO, URINE - 0 12/07/18 11:38 CREATININE, RANDOM URINE 64 mg/dL 20-32 0 MICROALBUMIN 214.8 mg/dL See Note: MICROALBUMIN/CREATININE RATIO, RANDOM URINE 3356 mcg/mg creat <30 CMP - 12/07/18 11:38 GLUCOSE 180 mg/dL 65-139 UREA NITROGEN (BUN) 32 mg/dL 7-25 CREATININE 1.94 mg/dL 0.70-1.33 eGFR NON-AFR. PRYDEINIG 38 mL/min/1.73m2 > OR = 60 eGFR 44 mL/min/1.73m2 > OR = 60 BUN/CREATININE RATIO 16 (calc) 6-22 SODIUM 138 mmol/L 135-146 POTASSIUM 4.8 mmol/L 3.5-5.3 CHLORIDE 108 mmol/L 98-110 CARBON DIOXIDE 25 mmol/L 20-32 CALCIUM 8.9 mg/dL 8.6-10.3 PROTEIN, TOTAL 6.2 g/dL 6.1-8.1 ALBUMIN 3.5 g/dL 3.6-5.1 GLOBULIN 2.7 g/dL (calc) 1.9-3.7 ALBUMIN/GLOBULIN RATIO 1.3 (calc) 1.0-2. 5 BILIRUBIN, TOTAL 0.5 mg/dL 0.2-1.2 ALKALINE PHOSPHATASE 115 U/L 40-115 AST 37 U/L 10-35 ALT 22 U/L 9-46 A1C - 12/07/18 11:38 HEMOGLOBIN A1c 7.4 % of total Hgb <5.7 BMP - 12/17/18 08:30 GLUCOSE 193 mg/dL 65-99 UREA NITROGEN (BUN) 37 mg/dL 7-25 CREATININE 1.94 mg/dL 0.70-1.33 eGFR NON-AFR. PRYDEINIG 38 mL/min/1.73m2 > OR = 60 eGFR 44 mL/min/1.73m2 > OR = 60 BUN/CREATININE RATIO 19 (calc) 6-22 SODIUM 137 mmol/L 135-146 POTASSIUM 4.7 mmol/L 3.5-5.3 CHLORIDE 107 mmol/L 98-110 CARBON DIOXIDE 23 mmol/L 20-32 CALCIUM 9.4 mg/dL 8.6-10.3 UA W/ MICROSCOPY - 03/11/19 11:26 COLOR DARK YELLOW YELLOW APPEARANCE CLEAR CLEAR SPECIFIC GRAVITY 1.021 1.001-1.035 PH 6.0 5.0-8.0 GLUCOSE 1+ NEGATIVE BILIRUBIN NEGATIVE NEGATIVE KETONES NEGATIVE NEGATIVE OCCULT BLOOD 1+ NEGATIVE PROTEIN 3+ NEGATIVE NITRITE NEGATIVE NEGATIVE LEUKOCYTE ESTERASE NEGATIVE NEGATIVE WBC 0-5 /HPF < OR = 5 RBC 0-2 /HPF < OR = 2 SQUAMOUS EPITHELIAL CELLS 0-5 /HPF < OR = 5 BACTERIA NONE SEEN /HPF NONE SEEN HYALINE CAST 0-5 /LPF NONE SEEN PROTEIN, TOTAL W/CREAT, RANDOM URINE - 0 06/11/19 14:11 CREATININE, RANDOM URINE 78 mg/dL 20-32 0 PROTEIN/CREATININE RATIO 33605 mg/g creat 22-128 PROTEIN, TOTAL, RANDOM UR 1039 mg/dL 5-2 5 RENAL PROFILE - 07/10/19 10:25 GLUCOSE 116 mg/dL 65-99 UREA NITROGEN (BUN) 54 mg/dL 7-25 CREATININE 3.74 mg/dL 0.70-1.33 eGFR NON-AFR. PRYDEINIG 17 mL/min/1.73m2 > OR = 60 eGFR 20 mL/min/1.73m2 > OR = 60 BUN/CREATININE RATIO 14 (calc) 6-22 SODIUM 136 mmol/L 135-146 POTASSIUM 5.1 mmol/L 3.5-5.3 CHLORIDE 109 mmol/L 98-110 CARBON DIOXIDE 18 mmol/L 20-32 CALCIUM 8.5 mg/dL 8.6-10.3 ALBUMIN 3.2 g/dL 3.6-5.1 PHOSPHATE ( PHOSPHORUS) 6.7 mg/dL 2.5- 4.5 CBC - 07/10/19 10:25 WHITE BLOOD CELL COUNT 9.0 Thousand/uL 3 .8-10.8 RED BLOOD CELL COUNT 3.64 Million/uL 4.2 0-5.80 HEMOGLOBIN 10.0 g/dL 13.2-17.1 HEMATOCRIT 31.1 % 38.5-50.0 MCV 85.4 fL 80.0-100.0 MCH 27.5 pg 27.0-33.0 MCHC 32.2 g/dL 32.0-36.0 RDW 12.5 % 11.0-15.0 PLATELET COUNT 226 Thousand/uL 140-400 MPV 11.7 fL 7.5-12.5 ABSOLUTE NEUTROPHILS 6561 cells/uL 1500- 7800 ABSOLUTE LYMPHOCYTES 1269 cells/uL 850-3 900 ABSOLUTE MONOCYTES 549 cells/uL 200-950 ABSOLUTE EOSINOPHILS 558 cells/uL 15-500 ABSOLUTE BASOPHILS 63 cells/uL 0-200 NEUTROPHILS 72.9 % NRG LYMPHOCYTES 14.1 % NRG MONOCYTES 6.1 % NRG EOSINOPHILS 6.2 % NRG BASOPHILS 0.7 % NRG CMP - 07/30/19 11:03 GLUCOSE 247 mg/dL 65-99 UREA NITROGEN (BUN) 53 mg/dL 7-25 CREATININE 4.01 mg/dL 0.70-1.33 eGFR NON-AFR. PRYDEINIG 16 mL/min/1.73m2 > OR = 60 eGFR 18 mL/min/1.73m2 > OR = 60 BUN/CREATININE RATIO 13 (calc) 6-22 SODIUM 135 mmol/L 135-146 POTASSIUM 5.4 mmol/L 3.5-5.3 CHLORIDE 109 mmol/L 98-110 CARBON DIOXIDE 21 mmol/L 20-32 CALCIUM 8.4 mg/dL 8.6-10.3 PROTEIN, TOTAL 6.1 g/dL 6.1-8.1 ALBUMIN 3.4 g/dL 3.6-5.1 GLOBULIN 2.7 g/dL (calc) 1.9-3.7 ALBUMIN/GLOBULIN RATIO 1.3 (calc) 1.0-2. 5 BILIRUBIN, TOTAL 0.3 mg/dL 0.2-1.2 ALKALINE PHOSPHATASE 162 U/L 35-144 AST 38 U/L 10-35 ALT 34 U/L 9-46 RENAL PROFILE - 07/30/19 11:03 GLUCOSE 247 mg/dL 65-99 UREA NITROGEN (BUN) 53 mg/dL 7-25 CREATININE 4.01 mg/dL 0.70-1.33 eGFR NON-AFR. PRYDEINIG 16 mL/min/1.73m2 > OR = 60 eGFR 18 mL/min/1.73m2 > OR = 60 BUN/CREATININE RATIO 13 (calc) 6-22 SODIUM 135 mmol/L 135-146 POTASSIUM 5.4 mmol/L 3.5-5.3 CHLORIDE 109 mmol/L 98-110 CARBON DIOXIDE 21 mmol/L 20-32 CALCIUM 8.4 mg/dL 8.6-10.3 ALBUMIN 3.4 g/dL 3.6-5.1 PHOSPHATE ( PHOSPHORUS) 4.8 mg/dL 2.5- 4.5 CBC - 07/30/19 11:03 WHITE BLOOD CELL COUNT 7.0 Thousand/uL 3 .8-10.8 RED BLOOD CELL COUNT 3.89 Million/uL 4.2 0-5.80 HEMOGLOBIN 10.6 g/dL 13.2-17.1 HEMATOCRIT 33.1 % 38.5-50.0 MCV 85.1 fL 80.0-100.0 MCH 27.2 pg 27.0-33.0 MCHC 32.0 g/dL 32.0-36.0 RDW 13.1 % 11.0-15.0 PLATELET COUNT 197 Thousand/uL 140-400 MPV 11.7 fL 7.5-12.5 ABSOLUTE NEUTROPHILS 4970 cells/uL 1500- 7800 ABSOLUTE LYMPHOCYTES 861 cells/uL 850-39 00 ABSOLUTE MONOCYTES 371 cells/uL 200-950 ABSOLUTE EOSINOPHILS 770 cells/uL 15-500 ABSOLUTE BASOPHILS 28 cells/uL 0-200 NEUTROPHILS 71 % NRG LYMPHOCYTES 12.3 % NRG MONOCYTES 5.3 % NRG EOSINOPHILS 11.0 % NRG BASOPHILS 0.4 % NRG PDM - 09 PANEL (PROFILE 1) - 11/05/19 11 :43 Prescribed Drug 1 Tramadol NRG Creatinine 60.5 mg/dL > or = 20.0 pH 6.7 4.5-9.0 Oxidant NEGATIVE mcg/mL <200 Amphetamines NEGATIVE ng/mL <500 medMATCH Amphetamines CONSISTENT NRG Benzodiazepines NEGATIVE ng/mL <100 medMATCH Benzodiazepines CONSISTENT NRG Marijuana Metabolite NEGATIVE ng/mL <20 medMATCH Marijuana Metab CONSISTENT NRG Cocaine Metabolite NEGATIVE ng/mL <150 medMATCH Cocaine Metab CONSISTENT NRG Opiates NEGATIVE ng/mL <100 medMATCH Opiates CONSISTENT NRG Oxycodone NEGATIVE ng/mL <100 medMATCH Oxycodone CONSISTENT NRG COMMENT NRG Prescribed Drug 2 Lyrica(TM) NRG Prescribed Drug 4 Pregabalin NRG Barbiturates NEGATIVE ng/mL <300 medMATCH Barbiturates CONSISTENT NRG Methadone Metabolite NEGATIVE ng/mL <100 medMATCH Methadone Metab CONSISTENT NRG Phencyclidine NEGATIVE ng/mL <25 medMATCH Phencyclidine CONSISTENT NRG PDM - TRAMADOL - 11/05/19 11:43 Prescribed Drug 1 Tramadol NRG COMMENT NRG Desmethyltramadol 3890 ng/mL <100 medMATCH Desmethyltram CONSISTENT NRG Tramadol >11251 ng/mL <100 medMATCH Tramadol CONSISTENT NRG Prescribed Drug 2 Lyrica(TM) NRG Prescribed Drug 4 Pregabalin NRG PDM - PREGABALIN (LYRICA) - APPROVAL REQ UIRED - 11/05/19 11:43 Prescribed Drug 1 Tramadol NRG COMMENT NRG Prescribed Drug 2 Lyrica(TM) NRG Prescribed Drug 4 Pregabalin NRG Pregabalin 25112 ng/mL <1000 medMATCH Pregabalin CONSISTENT NRG CBC - 12/02/19 16:15 WHITE BLOOD CELL COUNT 6.3 Thousand/uL 3 .8-10.8 RED BLOOD CELL COUNT 3.77 Million/uL 4.2 0-5.80 HEMOGLOBIN 10.1 g/dL 13.2-17.1 HEMATOCRIT 31.5 % 38.5-50.0 MCV 83.6 fL 80.0-100.0 MCH 26.8 pg 27.0-33.0 MCHC 32.1 g/dL 32.0-36.0 RDW 13.8 % 11.0-15.0 PLATELET COUNT 141 Thousand/uL 140-400 MPV 9.9 fL 7.5-12.5 ABSOLUTE NEUTROPHILS 4668 cells/uL 1500- 7800 ABSOLUTE LYMPHOCYTES 888 cells/uL 850-39 00 ABSOLUTE MONOCYTES 460 cells/uL 200-950 ABSOLUTE EOSINOPHILS 246 cells/uL 15-500 ABSOLUTE BASOPHILS 38 cells/uL 0-200 NEUTROPHILS 74.1 % NRG LYMPHOCYTES 14.1 % NRG MONOCYTES 7.3 % NRG EOSINOPHILS 3.9 % NRG BASOPHILS 0.6 % NRG Encounters ACCT No. Visit Date/Time Discharge Status Pt. Type Provider Facility Loc./Unit Complaint [id number] 12/02/2019 14:20:00 12/02/2019 23:59:5 9 CLS Outpatient SELAMBELEN SANDOVAL [facility] [id number] 12/02/2019 14:20:00 Document Registration [id number] 11/05/2019 10:40:00 Document Registration [id number] 07/30/2019 10:45:00 Document Registration [id number] 07/10/2019 09:40:00 Document Registration [id number] 06/11/2019 14:00:00 Document Registration [id number] 03/11/2019 11:00:00 Document Registration [id number] 12/17/2018 09:30:00 Document Registration [id number] 12/07/2018 11:00:00 Document Registration [id number] 09/07/2018 10:15:00 Document Registration [id number] 12/03/2019 14:56:00 020 23:59:59 CLS Outpatient KIKI QUINN APRN [facility] PLEURAL EFFUSION [id number] 12/02/2019 15:10:00 020 23:59:59 CLS Outpatient LANCE PLASCENCIA [facility] FS [id number] 12/12/2011 13:19:00 12/12/2011 23:59: 59 CLS Outpatient
[2019-12-09 13:18] LABS: EOSINOPHILS % (AUTO) 2 % (0-10); HEMATOCRIT 27 % (40-54); HEMOGLOBIN 8.9 G/DL (13.3-17.7); LYMPHOCYTES % (AUTO) 7 % (12-44); MEAN CORPUSCULAR HEMOGLOBIN 28 PG (25-34); MEAN CORPUSCULAR HGB CONC 33 G/DL (32-36); MEAN CORPUSCULAR VOLUME 85 FL (80-99); MEAN PLATELET VOLUME 11.6 FL (7.4-10.4); MONOCYTES % (AUTO) 6 % (0-12); NEUTROPHILS % (AUTO) 85 % (42-75); PLATELET COUNT 150 10^3/uL (130-400); RED CELL DISTRIBUTION WIDTH 15.1 % (10.0-14.5); WHITE BLOOD COUNT 6.8 10^3/uL (4.3-11.0)
[2019-12-09 13:19] LABS: BASOPHILS % (AUTO) 0 % (0-10); EOSINOPHILS # (AUTO) 0.1 10^3/uL (0.0-0.3); LYMPHOCYTES # (AUTO) 0.5 X 10^3 (1.0-4.0); MONOCYTES # (AUTO) 0.4 X 10^3 (0.0-1.0); NEUTROPHILS # (AUTO) 5.7 X 10^3 (1.8-7.8)
--- NOTE | 2019-12-09 13:19 | Diagnostic Imaging Report ---
INDICATION: Shortness of breath. TIME OF EXAM: 01:05 p.m. COMPARISON: Correlation is made with prior chest from 12/03/2019. FINDINGS: Heart size is normal. Left basilar consolidation and pleural fluid is unchanged. Patient has developed some airspace infiltrate in the right upper lobe. There are prominent interstitial markings throughout both lungs as well. No pneumothorax is seen. IMPRESSION: No significant change in left basilar consolidation and pleural fluid since exam from 12/03/2019. There is worsening airspace infiltrate in the right upper lobe since prior exam. Dictated by: Dictated on workstation # [id number]
[2019-12-09 13:32] LABS: BILIRUBIN,TOTAL 0.5 MG/DL (0.1-1.0); CALCIUM 8.5 MG/DL (8.5-10.1); CREATININE SERUM 7.35 MG/DL (0.60-1.30); MAGNESIUM 2.1 MG/DL (1.6-2.4); TOTAL PROTEIN 6.4 GM/DL (6.4-8.2)
[2019-12-09 13:33] LABS: ALBUMIN 3.2 GM/DL (3.2-4.5)
[2019-12-09 13:51] LABS: BAND NEUTROPHILS 0 %; BASOPHILS % (MANUAL) 0 %; EOSINOPHILS % (MANUAL) 3 %; LYMPHOCYTES % (MANUAL) 6 %; MONOCYTES % (MANUAL) 7 %; NEUTROPHILS % (MANUAL) 84 %
[2019-12-09 15:02] LABS: POTASSIUM 4.1 MMOL/L (3.6-5.0)
--- NOTE | 2019-12-09 16:23 | NUR ---
THIS RN EXPLAINED TO THE PATIENT THAT [facility] IS FULL, [facility] IS FULL, [facility] IS FULL, [facility] WILL NOT ACCEPT, BECAUSE HE NEEDS DIALYSIS ON . [facility] DOES NOT HAVE THE CAPABILITIES TO DO A VQ SCAN. THIS RN ASKED WHERE HE WANTED TO GO IN AND HE REFUSES TO GO TO . HE STATED HE WOULD RATHER GO HOME. PT WAS ASKED IF IT WAS DUE TO A RIDE HOME AND HE STATED NO AND THAT HE JUST WILL NOT GO TO [facility]. PT WANTS TO GO HOME. PHYSICIAN WAS INFORMED. PT IS GOING TO SIGN OUT AMA.
--- NOTE | 2019-12-09 16:29 | NUR ---
TALKED TO DR. SWANSON AND DISCUSSED HOME OXYGEN. CALLED [facility] AND THEY REQUIRE AN ORDER, SET OF 3 VITAL SIGNS (WITHOUT OXYGEN, WITH OXYGEN AND WHILE PATIENT IS AMBULATING) AND A FACESHEET. OBTAINING THESE REQUESTS NOW.
[2019-12-09] MEDS ORDERED: LEVO750T9 PO (16:31)
[2019-12-09] MEDS ORDERED: RT-ALBUINH IH (16:31)
[2019-12-09 16:45] VITALS: BP 156/85
--- NOTE | 2019-12-09 16:45 | NUR ---
Pt is going to hang out until [facility] arrives with home oxygen.
--- NOTE | 2019-12-09 16:51 | NUR ---
FAXED INFO TO [facility] AT [phone]
--- NOTE | 2019-12-09 16:53 | NUR ---
I SPOKE TO DEMIAN WITH [facility] AND THEY ARE GETTING THE SUPPLIES TOGETHER. THEY WILL BE COMING IN COMPLETE PPE ON.
--- NOTE | 2019-12-09 17:12 | NUR ---
[facility] IS HERE, EXPLAINING TO THE PATIENT WHAT HE WILL BE RECEIVING AND HOW TO USE OXYGEN.
== END 2019-12-09 17:15 | disposition left against medical advice (07) ==
LOC: EDUNIT# 12:19 → ER FS 12:21
DX: R09.02 Hypoxemia (principal); R91.8 Other nonspecific abnormal finding of lung field; J90 Pleural effusion, not elsewhere classified; Z88.0 Allergy status to penicillin; N18.6 End stage renal disease; Z99.2 Dependence on renal dialysis; Z20.828 Contact with and (suspected) exposure to other viral communicable diseases
CPT/HCPCS: 36415; 71045; 80053; 83735; 85007; 85025; 85027; 87040; 93005; 99284; U0002; 87635

== ENCOUNTER → 2021-02-16 | Outpatient (CLI) | payer OTHER, MEDICARE, MEDICAID ==
[~2021-02-16] MED LIST: LEVO750T9 PO; RT-ALBUINH IH
--- NOTE | 2021-02-16 14:08 | Diagnostic Imaging Report ---
INDICATION: Bruising with pain and swelling about the left eye and cheek. EXAMINATION: Facial bones, 3 views. FINDINGS: There is opacification of the left maxillary sinus. Right maxillary sinus is well-aerated and clear. Ethmoid sinuses, frontal sinuses, and sphenoid sinus are clear. No evidence of nasal bone fracture. No infraorbital rim fracture is noted. There is rather marked deviation of the nasal septum to the right. IMPRESSION: 1. Opacification of the left maxillary sinus. This could be secondary to inflammatory changes although an occult fracture with a history of trauma could be in the differential as well. 2. Rather marked deviation of the nasal septum to the right. Dictated by: Dictated on workstation # [id number]
== END ==
LOC: RAD FS 10:59
PROVIDERS: ATTEND Nurse Practitioner Family
DX: S09.93XD Unspecified injury of face, subsequent encounter (principal); J34.89 Other specified disorders of nose and nasal sinuses; X58.XXXD Exposure to other specified factors, subsequent encounter
CPT/HCPCS: 70140